=== PATIENT | female | born 1990 | race African-American/Black ===

== ENCOUNTER 2018-04-13 08:37 | Emergency (ER) | payer MEDICAID ==
[~2018-04-13] VITALS: Ht 182.9 cm; Wt 68.0 kg
[2018-04-13] MEDS ORDERED: IBUPROFEN 600MG TABLET PO ONE (10:45)
[2018-04-13] MEDS ORDERED: TETANUS, DIPHTHERIA, PERTUSSIS VAC/PF 0.5ML (>7YR OLD) IM ONE (10:45)
[2018-04-13 13:00] VITALS: BP 133/60
== END 2018-04-13 13:32 | disposition home or self-care (01) ==
LOC: ER 08:37
DX: S40.812A Abrasion of left upper arm, initial encounter (principal); R51 Headache; V43.52XA Car driver injured in collision with other type car in traffic accident, initial encounter; Y93.89 Activity, other specified; Y92.488 Other paved roadways as the place of occurrence of the external cause
CPT/HCPCS: 81025; 90471; 90715; 99284

== ENCOUNTER 2018-08-25 07:01 | Emergency (ER) | payer MEDICAID ==
[~2018-08-25] VITALS: Ht 167.6 cm; Wt 71.0 kg
[2018-08-25] MEDS ORDERED: SODIUM CHLORIDE 0.9% 1,000 ML IV ONE (09:45)
[2018-08-25] MEDS ORDERED: KETOROLAC 30MG/ML VIAL IV STA (09:45)
[2018-08-25] MEDS ORDERED: ONDANSETRON HCL 4MG/2ML INJ IV STA (09:45)
[2018-08-25 10:22] LABS: HEMATOCRIT. 36.6 % (36.0-48.0); HEMOGLOBIN. 12.2 g/dL (12.0-16.0); MEAN CORPUSCULAR HEMOGLOBIN 26.2 pg (28.0-32.0); MEAN CORPUSCULAR VOLUME 78.9 fL (81.0-99.0); MEAN PLATELET VOLUME 8.9 fl (7.4-10.4); PLATELET 224 x1000/uL (130-400); RED BLOOD CELL COUNT 4.64 mill/uL (4.2-5.4); RED CELL DISTRIBUTION WIDTH 15.9 % (11.6-14.6)
[2018-08-25 10:28] LABS: CHLORIDE 108 mEq/L (98-107)
[2018-08-25 10:54] LABS: PLATELET ESTIMATE NORMAL
[2018-08-25 11:56] VITALS: BP 124/71
== END 2018-08-25 11:59 | disposition home or self-care (01) ==
LOC: ER 07:13
DX: N94.6 Dysmenorrhea, unspecified (principal); R10.9 Unspecified abdominal pain; R11.10 Vomiting, unspecified; R19.7 Diarrhea, unspecified; R00.2 Palpitations; F17.200 Nicotine dependence, unspecified, uncomplicated
CPT/HCPCS: 36415; 80053; 81025; 83690; 85025; 96361; 96374; 96375; 99283; J1885; J2405; J7030